=== PATIENT | female | born 1950 | race Caucasian/White ===

== ENCOUNTER → 2017-03-03 | Outpatient (CLI) | payer OTHER, MEDICAID ==
--- NOTE | 2017-03-08 11:00 | CT ---
CT left knee without contrast Indication: Medial meniscus tear possible clinically. Left knee pain. History of contrast allergy. Technique: Helical images through the left knee without contrast. Coronal and sagittal reformats pro vided. Findings: There is no fracture. There is mild multi compartment degenerative change with medial femo rotibial and diffuse patellofemoral joint space narrowing noted. There is no large effusion. Vascula r plaque is present. CT is limited for the assessment of the soft tissues, but the ACL and PCL appear to be intact. The e xtensor mechanism is normal with minimal enthesopathy at the quadriceps tendon noted. The lateral collateral ligamentous complex and MCL appear grossly intact. Small slightly hyperdense nodularity along the anterior medial soft tissues, external to the joint capsule but along the media l retinaculum is seen on axial image 39 measuring 1.1 x 0.9 cm. This could reflect old MCL injury, w ith other soft tissue lesions not excluded. Targeted ultrasound is recommended. Within limits of CT, the lateral meniscus shows no large displaced tear or flipped fragment. Minimal free edge fraying could be present. The medial meniscus appears generally intact with mild blunting of the free edge suggesting free edg e fraying. No large displaced tear seen. Minimal extrusion of the medial meniscus body suggests sequ vee of chronic degenerative joint space narrowing. Impression: 1. No large displaced meniscal tear identified. Fraying of the free edge of the medial meniscus grea ter than lateral meniscus suspected. Nondisplaced tear cannot be completely excluded. 2. Multi compartment degenerative change with joint space narrowing worst in the medial femorotibial compartment and in the patellofemoral compartment. Minimal extrusion of the medial meniscus is like ly due to this degenerative change. 3. Soft tissue nodular density along the medial retinaculum, but probably extra capsular in location is somewhat hyperdense and is of uncertain etiology. This could represent sequela of old injury or even a small ganglion cyst. However, targeted ultrasound is recommended to exclude other vascular or neoplastic lesion. Reported By:
== END ==
LOC: RAD 10:10
PROVIDERS: ATTEND Specialist
DX: S83.242S Other tear of medial meniscus, current injury, left knee, sequela (principal); X58.XXXS Exposure to other specified factors, sequela
CPT/HCPCS: 73700